=== PATIENT | male | born 2000 | race African-American/Black ===

== ENCOUNTER 2019-11-21 17:10 | Observation (INO) | payer OTHER ==
[~2019-11-21] VITALS: Ht 182.9 cm; Wt 75.0 kg
[2019-11-21 18:12] LABS: BASOPHILS 0.1 % (0-2); EOSINOPHILS 0.2 % (0-7); HEMATOCRIT 44.7 % (42.0-54.0); HEMOGLOBIN 15.7 g/dL (13.5-17.5); IMMATURE GRANULOCYTES 0.2 % (0-5); LYMPHOCYTES 7.6 % (15-50); MCH 30.1 pg (26.0-34.0); MCHC 35.1 g/dL (31.0-37.0); MCV 85.8 fL (80.0-100.0); MEAN PLATELET VOLUME 8.4 fL (7.4-10.4); MONOCYTES 7.5 % (2-11); NEUTROPHILS 84.4 % (40-80); PLATELET COUNT 240 10x3/uL (130-400); RBC 5.21 10x6/uL (4.20-6.10); RDW 12.3 % (11.5-14.5); WBC 13.9 10x3/uL (4.8-10.8)
[2019-11-21 18:15] LABS: APTT 33.6 SECONDS (22.8-39.4); INR 1.13 (0.85-1.17); PROTIME 14.5 SECONDS (11.6-15.0)
[2019-11-21 18:24] LABS: CALC OSMOLALITY 268 mosm/kg (275-300); CALCIUM 9.1 mg/dL (8.5-10.1); CARBON DIOXIDE 23.9 mmol/L (21.0-32.0); CHLORIDE - SERUM 101 mmol/L (98-107); CREATININE - SERUM 1.1 mg/dL (0.6-1.3); GLUCOSE 81 mg/dL (74-106); POTASSIUM - SERUM 3.3 mmol/L (3.5-5.1); SODIUM 136 mmol/L (136-145); UREA NITROGEN 8 mg/dL (7-18); eGFR NON AFRICAN AMERICAN 90 mL/min (90-120)
[2019-11-21 18:28] LABS: ALBUMIN 4.1 g/dL (3.4-5.0); ALKALINE PHOSPHATASE 63 U/L (30-120); ALT (SGPT) 41 U/L (10-68); BILIRUBIN - TOTAL 0.88 mg/dL (0.2-1.3)
--- NOTE | 2019-11-21 21:55 | NUR ---
PT BACK FROM MRI
[2019-11-22 00:48] VITALS: BP 108/50
--- NOTE | 2019-11-22 01:04 | NUR ---
PT GIVEN X2 IVP MEDS PER MAY. PT AWAKE AND ALERT WITH 7/ 10 PAIN LEVEL. PT GIVEN LINENS AND REFRESHMENTS PER REQUEST. PT DENIES FURTHER NEEDS AT THIS TIME. PT IV SITE INTACT. PT CALL LIGHT WITHIN REACH. NO S/S OF DISTRESS NOTED.
[2019-11-22 01:55] VITALS: BP 120/43
[2019-11-22 06:21] VITALS: BP 111/47
[2019-11-22 08:00] VITALS: BP 115/58
--- NOTE | 2019-11-22 10:47 | NUR ---
DR. CALERO AT BEDSIDE TALKING WITH PATIENT AT THIS TIME
[2019-11-22 11:11] LABS: GLUCOSE - CSF 54 MG/DL (40-75)
[2019-11-22 11:13] VITALS: Ht 182.9 cm; Wt 75.0 kg
[2019-11-22 11:13] LABS: PROTEIN - CSF 13 MG/DL (12-60)
[2019-11-22 11:22] LABS: APPEARANCE - CSF CLEAR
[2019-11-22 11:25] LABS: RBC - CSF 1 cmm (0-0)
--- NOTE | 2019-11-22 11:41 | NUR ---
DR STEPHEN HERE AT BEDSIDE SEEING PATIENT
[2019-11-22 12:00] VITALS: BP 106/56
[2019-11-22 12:48] LABS: BILIRUBIN NEGATIVE (NEGATIVE); KETONE MODERATE mg/dL (NEGATIVE); NITRITE NEGATIVE (NEGATIVE); UROBILINOGEN NORMAL (NORMAL)
[2019-11-22 12:49] LABS: RED CELLS - URINE 0-5 /hpf (0-5); WHITE CELLS - URINE 0-5 /hpf (0-5)
[2019-11-22 12:50] LABS: BACTERIA MODERATE /hpf (NONE SEEN)
[2019-11-22 23:30] VITALS: BP 116/84
[2019-11-23 02:59] VITALS: BP 114/82
--- NOTE | 2019-11-23 07:02 | NUR ---
PT CARE ASSUMED AT THIS TIME, PT IS RESTING ON ER STRETCHER, RESPIRATIONS EVEN AND UNLABORED, VS STABLE ON THE MONITOR, NAD NOTED, BED LOW AND LOCKED, FAMILY AT BEDSIDE.
[2019-11-23] MEDS ORDERED: MEDROL DOSE PACK4 MG PO (08:27)
[2019-11-23] MEDS ORDERED: CYCLOBENZAPRINE10 MG PO (08:28)
== END 2019-11-23 10:15 | disposition home or self-care (01) ==
LOC: D.ER 17:10 → D.EDHOLD 11-22 00:04 → OBSVTIME 11-22 00:05 → D.EDHOLD 11-23 10:15
PROVIDERS: Family Medicine; ADMIT Family Medicine; ATTEND Family Medicine
DX: R20.0 Anesthesia of skin (principal); M54.5 Low back pain; M54.6 Pain in thoracic spine; D72.829 Elevated white blood cell count, unspecified; R53.1 Weakness